=== PATIENT | male | born 1990 | race Caucasian/White ===

== ENCOUNTER 2021-10-17 17:20 | Emergency (ER) | payer BC, SELFPAY ==
--- OUTSIDE RECORDS SUMMARY | 2021-10-17 17:23 | XMS REPORT | Continuity of Care Document ---
:1990 Author Organization [facility] t Address [address] [place] [address] Care Team Providers Name Role Phone PCP, DOES NOT HAVE A Primary Care Physician Unavailable Lupe HOWARD Attending Clinician LUPE Attending Clinician Unavailable Doctor Unassigned, Name Attending Clinician Unavailable Problems This patient has no known problems. Allergies, Adverse Reactions, Alerts Allergy Allergy Status Severity Reaction(s) Onset Inactive Treating Comm ents Source Name Type Date Date Clinician CEFACLOR DRUG Active Rash 2006- [facility] INGREDI 7-17 ity of 00:00: [place] 00 Medical Branch Cefaclor Propensi Active Rash Univer s ty to 17 ity of adverse 00:00: [place] reaction 00 Medical s Branch Social History Social Habit Start Date Stop Date Quantity Comments Source Exposure to Not sure [facility] SARS-CoV-2 (event) Medica l Branch Sex Assigned At [birth year] [facility] 00:00:00 00:00:00 Medical Branch Smoking Status Start Date Stop Date Source Unknown if ever smoked [facility] [place] Medications Ordered Filled Start Stop Current Ordering Indication Dosage Frequency Signature Comments Components Source Medication Medication Date Date Medication? Clinician (SIG) Name Name amoxicillin 2020-09 Yes [id number] 500mg Take 1 [facility] 500 mg 1-06 capsule by ity of capsule 00:00: mouth 3 [place] 00 (three) Medical times Branch daily. methylPREDN 2020-09 Yes [id number] Take by [facility] ISolone 4 1-06 mouth ity of mg tablets 00:00: SEE-INSTRU T [place] 00 CTIONS. Medical follow Branch package directions No known No [facility] medications 7-17 ity of 14:28: [place] 13 Medical Branch Vital Signs Vital Name Observation Time Observation Value Comments Source Systolic blood 2021-07-23 14:31:00 150 mm[Hg] Univer sity of pressure [facility] [place] [facility] Diastolic blood 2021-07-23 14:31:00 78 mm[Hg] Unive rsity of pressure [facility] [place] [facility] Heart rate 2021-07-23 14:31:00 82 /min [facility] Body temperature 2021-07-23 14:31:00 36.22 [facility] Respiratory rate 2021-07-23 14:31:00 16 /min [facility] Body height 2021-07-23 14:31:00 182.9 cm [facility] Body weight 2021-07-23 14:31:00 86.183 kg [facility] BMI 2021-07-23 14:31:00 25.77 kg/m2 [facility] Oxygen saturation in 2021-07-23 14:31:00 100 /min [facility] Arterial blood by [facility] Pulse oximetry Branch Procedures Procedure Date / Time Performed Performing Clinician Sour e RAPID STREP SCREEN 2021-07-23 14:32:00 Jose G Andrade [facility] FOR GROUP A Medical Branch NOTICE OF PRIVACY 2021-07-23 14:28:43 Doctor Unassigned, No [facility] PRACTICES Name Medical Branch CONSENT/REFUSAL FOR 2021-07-23 14:27:56 [facility] Name Medical Branch TREATMENT Encounters Start End Encounter Admission Attending Care Care Encounter Source Date/Time Date/Time Type Type Clinicians Facility Department ID 2021-07-23 2021-07-23 Emergency KIKI Andrade [id number] [facility] 09:33:00 10:08:00 Jose G OREILLY [id number] i ty [facility] [id number] [facility] [id number] [facility] brent 084 Branch 2021-07-23 2021-07-23 Emergency X KIKI ANDRADE ERT [id number] Univers 09:33:00 10:08:00 JOSE G ity of [facility] [place] [facility] 2021-07-23 2021-07-23 Orders Doctor BRIEN [id number] Univers 00:00:00 00:00:00 Only Unassigned, ROMÁN [id number] ity of [place] [facility] [id number] Lei as [id number] [place] [id number] Branch Results This patient has no known results.
--- NOTE | 2021-10-17 18:24 | RAD REPORT ---
EXAM DESCRIPTION: - Finger-Thumb Left - 10/17/2021 6:13 pm CLINICAL HISTORY: SWELLING COMPARISON: No comparisons FINDINGS/IMPRESSION: No acute fracture. No malalignment. No significant focal degenerative changes. Diffuse soft tissue swelling around the thumb.
[2021-10-17] MEDS ORDERED: BUPIVACAINE 0.5% PF 10 ML VIAL ONE (18:56)
[2021-10-17] MEDS ORDERED: LIDOCAINE 1% MPF 5 ML VIAL ONE (18:57)
[2021-10-17] MEDS ORDERED: LIDOCAINE 1% 20 ML MDV ONE (18:58)
--- NOTE | 2021-10-17 19:24 | ER ---
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 Coronavirus screen: Vaccine status: Patient reports receiving the 2nd dose of the covid vaccine. Ebola Screen: Patient denies travel to an Ebola-affected area in the 21 days before illness onset. Initial Sepsis Screen: Does the patient meet any 2 criteria? No. Patient's initial sepsis screen is negative. Does the patient have a suspected source of infection? No. Patient's initial sepsis screen is negative. Risk Assessment: Do you want to hurt yourself or someone else? Patient reports no desire to harm self or others. Onset of symptoms was September 24, 2021. 17:26 Method Of Arrival: Ambulatory [facility] 17:26 Acuity: JOSEPHINE 4 [facility] Triage Assessment: 17:30 General: Appears in no apparent distress. Behavior is calm, cooperative. Pain: Denies [facility] pain. Musculoskeletal: Swelling present in dorsal aspect of distal phalanx of left thumb and dorsal aspect of proximal phalanx of left thumb. Injury Description: Laceration sustained to dorsal aspect of distal phalanx of left thumb and dorsal aspect of proximal phalanx of left thumb. Historical: - Allergies: 17:28 [facility]; [facility] - Immunization history:: Adult Immunizations up to date, . - Social history:: Smoking status: Patient denies any tobacco usage or history of. Screenin:20 Abuse screen: Denies threats or abuse. Denies injuries from another. Nutritional ld1 screening: No deficits noted. Tuberculosis screening: No symptoms or risk factors identified. Fall Risk None identified. Assessment: 19:20 General: Appears in no apparent distress. comfortable, Behavior is calm, cooperative, ld1 appropriate for age. Pain: Denies pain. Neuro: Level of Consciousness is awake, alert, obeys commands, Oriented to person, place, time, situation. Cardiovascular: Capillary refill < 3 seconds Patient's skin is warm and dry. Respiratory: Airway is patent Respiratory effort is even, unlabored, Respiratory pattern is regular, symmetrical. Derm: Abscess located on left hand and dorsal aspect of proximal phalanx of left thumb and dorsal aspect of distal phalanx of left thumb. Vital Signs: 17:26 BP 144 / 85; Pulse 69; Resp 18; Temp 98.9(O); Pulse Ox 100% ; Weight 86.18 kg; Height 6 [facility] ft. 0 in. (182.88 cm); Pain 4/10; 19:20 BP 139 / 86; Pulse 72; Resp 18; Pulse Ox 100% on R/A; ld1 17:26 Body Mass Index 25.77 (86.18 kg, 182.88 cm) [facility] ED Course: 17:23 Patient arrived in ED. am2 17:28 Triage completed. [facility] 17:44 Edward Murguia PA is PHCP. cp 17:44 James Duffy MD is Attending Physician. cp 18:13 XRAY Finger-Thumb Left In Process Unspecified. EDMS 19:20 Patient has correct armband on for positive identification. Call light in reach. Side ld1 rails up X2. Pulse ox on. NIBP on. Door closed. Noise minimized. 19:20 No provider procedures requiring assistance completed. Patient did not have IV access ld1 during this emergency room visit. 19:23 Go Sánchez MD is Referral Physician. cp 19:37 Alisson Lin, FABIÁN is Primary Nurse. ld1 19:38 Arm band placed on right wrist. ld1 Administered Medications: 19:22 Drug: Lidocaine (1 %) 10 ml {Note: Adminstered by ANA Alvarado} Volume: 20 ml; ld1 Route: Infiltration; 19:22 Drug: Marcaine (bupivacaine) (0.5 %) 10 ml {Note: Adminstered by PA. Christiano} ld1 Volume: 10 ml; Route: Infiltration; 19:36 Drug: Doxycycline 200 mg Route: PO; ld1 19:36 Drug: Bactrim (trimethoprim-sulfamethoxazole) (160 mg-800 mg (DS) 2 tabs Route: PO; ld1 Outcome: 19:24 Discharge ordered by MD. cp 19:37 Discharged to home ambulatory. ld1 19:37 Condition: stable 19:37 Discharge instructions given to patient, Instructed on discharge instructions, follow up and referral plans. Demonstrated understanding of instructions, follow-up care. 19:38 Patient left the ED. ld1 Signatures: Dispatcher [employer] EDMS Edward Murguia PA PA cp Moreno, Amanda am2 Dibbern, Lauren, RN RN ld1 Cat Simmons RN RN [id number]
--- NOTE | 2021-10-17 19:25 | EDPHYS ---
Physician Documentation [facility] Name: Sebastian Cedeno Age: 31 yrs Sex: Male : 1990 Arrival Date: 10/17/2021 Time: 17:23 Bed 9 Private MD: ED Physician James Duffy HPI: 10/17 18:00 This 31 yrs old Male presents to ER via Ambulatory with complaints of Finger Injury - cp 2wks ago/not getting better. 18:00 The patient or guardian reports swelling, tenderness. cp 18:00 The complaints affect the dorsum left thumb. Associated signs and symptoms: Pertinent cp positives: swelling, erythema. Patient reports laceration injury to dorsum left thumb occurred 2 weeks ago while using razor. Patient reports this is first time being seen for injury. Historical: - Allergies: 17:28 Ceclor; 6 - Immunization history:: Adult Immunizations up to date, . - Social history:: Smoking status: Patient denies any tobacco usage or history of. ROS: 18:05 Skin: Positive for erythema, swelling, of the dorsum left thumb. cp 18:05 Constitutional: Negative for body aches, chills, fever. cp 18:05 All other systems are negative. Exam: 18:10 Constitutional: The patient appears in no acute distress, alert, awake, non-toxic, well cp developed, well nourished. 18:10 Head/Face: Normocephalic, atraumatic. cp 18:10 Skin: noted laceration dorsal side distal phalanx proximal to nail of left thumb. mild cp erythema, swelling, mild tenderness to palpation. no drainage expressed from wound. Vital Signs: 17:26 BP 144 / 85; Pulse 69; Resp 18; Temp 98.9(O); Pulse Ox 100% ; Weight 86.18 kg; Height 6 jh6 ft. 0 in. (182.88 cm); Pain 4/10; 19:20 BP 139 / 86; Pulse 72; Resp 18; Pulse Ox 100% on R/A; ld1 17:26 Body Mass Index 25.77 (86.18 kg, 182.88 cm) 6 MDM: 17:53 Patient medically screened. cp 19:23 Data reviewed: vital signs, nurses notes, radiologic studies, plain films, I have cp discussed the patient's presentation/case with the attending Emergency Department Physician; and as a result, I will discharge patient. 19:23 Differential diagnosis: open fracture, tendonitis, cellulitis, abscess. Test cp interpretation: by ED physician or midlevel provider: plain radiologic studies. ED course: VSS. Area aspirated with 18 gauge needle with no drainage returned. Wound cleaned irrigated. Oral antibiotics given. Will discharge to home for continued monitoring. Patient instructed to return to ED worsening symptoms or f/u with hand surgery. 10/17 17:55 Order name: XRAY Finger-Thumb Left; Complete Time: 18:35 cp 10/17 18:35 Interpretation: Report reviewed. cp 10/17 18:36 Order name: I\T\D Setup; Complete Time: 19:00 cp 10/17 19:23 Order name: Wound dressing: fingersplint; Complete Time: 19:37 cp Administered Medications: 19:22 Drug: Lidocaine (1 %) 10 ml {Note: Adminstered by ANA Alvarado} Volume: 20 ml; ld1 Route: Infiltration; 19:22 Drug: Marcaine (bupivacaine) (0.5 %) 10 ml {Note: Adminstered by PA. Christiano} ld1 Volume: 10 ml; Route: Infiltration; 19:36 Drug: Doxycycline 200 mg Route: PO; ld1 19:36 Drug: Bactrim (trimethoprim-sulfamethoxazole) (160 mg-800 mg (DS) 2 tabs Route: PO; ld1 Disposition: 19:30 Chart complete. cp 10/18 18:22 Co-signature as Attending Physician, James Duffy MD I agree with the assessment and rn plan of care. Attestation: The patient's history, exam findings, diagnostics, and a summary of any interventions or procedures was reviewed in detail with Edward PEREZ. Disposition Summary: 10/17/21 19:24 Discharge Ordered Location: Home cp Problem: new cp Symptoms: have improved cp Condition: Stable cp Diagnosis - Cellulitis of finger - left thumb cp Followup: cp - With: Go Sánchez MD - When: 2 - 3 days - Reason: Worsening of condition Discharge Instructions: - Discharge Summary Sheet cp - Cellulitis, Adult cp Forms: - Medication Reconciliation Form cp - Thank You Letter cp - Antibiotic Education cp - Prescription Opioid Use cp Prescriptions: - Doxycycline Hyclate 100 mg Oral Tablet - take 1 tablet by ORAL route every 12 hours; 20 tablet; Refills: 0, Product cp Selection Permitted - Bactrim DS 800-160 mg Oral Tablet - take 1 tablet by ORAL route every 12 hours for 10 days; 20 tablet; Refills: 0, cp Product Selection Permitted Signatures: Dispatcher [employer] EDJames Woods MD MD rn Edward Murguia PA PA cp Dibbern, Lauren, RN RN ld1 Cat Simmons RN RN [id number] Corrections: (The following items were deleted from the chart) 17:35 10/17 18:00 Patient reports laceration injury to dorsum left thumb occurred 2 weeks ago cp while using razor. cp
[2021-10-17] MEDS ORDERED: DOXYCYCLINE 100 MG CAP PO ONE (19:29)
[2021-10-17] MEDS ORDERED: SMZ./TMP. 800/160 MG TABLET ONE (19:30)
[2021-10-17 19:56] VITALS: TEMP 98.9; O2SAT 100
[2021-10-17 19:57] VITALS: BP 139/86
== END 2021-10-17 19:38 | disposition home or self-care (01) ==
LOC: ER 17:20
DX: L03.012 Cellulitis of left finger (principal); Z88.1 Allergy status to other antibiotic agents
CPT/HCPCS: 99283